=== PATIENT | male | born 1990 | race Caucasian/White ===

== ENCOUNTER 2021-06-28 15:12 | Outpatient (CLI) | payer OTHER ==
[2021-06-29 00:20] LABS: SARS-CoV-2 PCR by NAA Not Detected (NotDetected)
== END 2021-06-28 15:13 | disposition home or self-care (01) ==
LOC: CSHLAB 15:12
PROVIDERS: ATTEND Orthopaedic Surgery
DX: Z20.822 Contact with and (suspected) exposure to COVID-19 (principal); S83.511A Sprain of anterior cruciate ligament of right knee, initial encounter; S83.211D Bucket-handle tear of medial meniscus, current injury, right knee, subsequent encounter
CPT/HCPCS: U0003; U0005

== ENCOUNTER 2021-07-01 05:30 | Day surgery (SDC) | payer OTHER ==
[2021-06-29 16:25] VITALS: BMI 29.5
[2021-07-01] MEDS ORDERED: PROPOFOL 0 ML ONE (06:42)
[2021-07-01] MEDS ORDERED: Ketorolac Tromethamine 30 MG/ML VIAL ONE ×2 (06:42→07:17)
[2021-07-01] MEDS ORDERED: Bupivacaine PF 0.5% 30 ML VIAL ONE (06:43)
[2021-07-01] MEDS ORDERED: Fentanyl 100 MCG/2 ML VIAL ONE ×2 (06:43→07:21)
[2021-07-01] MEDS ORDERED: Lidocaine 1% MPF 2 ML VIAL ONE (06:53)
[2021-07-01] MEDS ORDERED: Midazolam HCl 2 mg/2 ml Vial ONE (07:21)
[2021-07-01] MEDS ORDERED: Ropivacaine 0.5% HCl/PF (150 MG/30 ML VIAL) ONE (07:23)
[2021-07-01] MEDS ORDERED: PROPOFOL 20 ML ONE (07:36)
[2021-07-01] MEDS ORDERED: ceFAZolin 2 GM/Dextrose 50 ML IVPB ONE (07:37)
[2021-07-01] MEDS ORDERED: Tranexamic Acid 1,000 MG/10 ML VIAL ONE (07:42)
[2021-07-01] MEDS ORDERED: Ondansetron PF 4 MG/2 ML Vial ONE (08:00)
[2021-07-01] MEDS ORDERED: Lidocaine 1% PF 5 ML VIAL ONE (08:00)
[2021-07-01] MEDS ORDERED: Dexamethasone 4 mg/ml Vial ONE (08:00)
== END 2021-07-01 11:36 | disposition home or self-care (01) ==
LOC: CSHSDC 05:30
PROVIDERS: ATTEND Orthopaedic Surgery
PROC: 0MRN47Z Replacement of Right Knee Bursa and Ligament with Autologous Tissue Substitute, Percutaneous Endoscopic Approach (ICD-10-PCS; principal; 2021-07-01)
PROC: 0SQC4ZZ Repair Right Knee Joint, Percutaneous Endoscopic Approach (ICD-10-PCS; principal; 2021-07-01)
DX: S83.511A Sprain of anterior cruciate ligament of right knee, initial encounter (principal); S83.211A Bucket-handle tear of medial meniscus, current injury, right knee, initial encounter; Z20.822 Contact with and (suspected) exposure to COVID-19
CPT/HCPCS: C1713; J0690; J1100; J1885; J2250; J2405; J2704; J2795; J3010; S0020

== ENCOUNTER 2021-07-02 06:08 | Emergency (ER) | payer OTHER ==
[2021-07-02] MEDS ORDERED: Morphine 4 MG/ML VIAL ONE (07:01)
[2021-07-02 07:14] LABS: #Basophils 0.1 10x3/uL (0.0-0.2); #Monocytes 1.8 10x3/uL (0.0-1.1); #Neutrophils 9.4 10x3/uL (1.5-8.4); %Basophils 0.4 % (0.0-2.0); %Eosinophils 0.2 % (0.0-6.0); %Lymphocytes 17.7 % (18.0-47.0); %Monocytes 12.9 % (0.0-10.0); %Neutrophils 67.7 % (40.0-75.0); Mean Corpuscular HGB CONC 35.1 g/dL (32.0-36.0); Mean Corpuscular Hemoglobin 29.5 pg (27.0-33.0); Mean Corpuscular Volume 83.9 fl (81.2-95.1); Mean Platelet Volume 9.9 fl (7.4-10.4); Platelet Count 220 10x3/uL (150-450); RBC Distribution Width 11.5 % (11.5-14.5); Red Blood Cell (RBC) Count 5.09 10x6/uL (4.32-5.72); White Blood Cell (WBC) Count 13.9 10x3/uL (3.5-10.5)
[2021-07-02 07:23] LABS: INR-International Normal Ratio 1.1; PTT 28.2 sec (22.0-33.0); Prothrombin Time 11.4 sec (9.5-12.1)
[2021-07-02 07:25] LABS: ALT (SGPT) 23 U/L (8-55); AST (SGOT) 16 U/L (5-34); Albumin 4.1 g/dL (3.5-5.0); Alkaline Phosphatase 65 U/L (40-110); Anion Gap 15 mmol/L (10-20); BUN (Urea Nitrogen) 13 mg/dL (8.9-20.6); Bilirubin, Total 0.9 mg/dL (0.2-1.2); Calc. Creatinine Clearance 0 mL/min (70-130); Calcium 9.1 mg/dL (7.8-10.44); Carbon Dioxide 24 mmol/L (22-29); Chloride 104 mmol/L (98-107); Globulin 2.8 g/dL (2.4-3.5); Glucose 104 mg/dL (70-105); Potassium 3.6 mmol/L (3.5-5.1); Protein, Total 6.9 g/dL (6.0-8.3); Sodium 139 mmol/L (136-145)
[2021-07-02] MEDS ORDERED: Ketorolac Tromethamine 30 MG/ML VIAL ONE (07:44)
== END 2021-07-02 10:30 | disposition home or self-care (01) ==
LOC: CSHERS 06:08
DX: M79.604 Pain in right leg (principal); Z98.890 Other specified postprocedural states
CPT/HCPCS: 80053; 85025; 85610; 85730; 93923; 96374; 96375; J1885; J2270